=== PATIENT | male | born 1965 | race Caucasian/White ===

== ENCOUNTER 2016-10-23 06:18 | Outpatient (CLI) | payer OTHER ==
[~2016-10-23] VITALS: Ht 167.6 cm; Wt 79.4 kg
== END 2016-10-23 13:03 ==
LOC: PREOP 06:18
PROVIDERS: ATTEND Otolaryngology Otolaryngology/Facial Plastic Surgery
DX: Z01.818 Encounter for other preprocedural examination (principal)

== ENCOUNTER 2016-10-29 08:12 | Day surgery (SDC) | payer OTHER ==
[~2016-10-29] VITALS: Ht 167.6 cm; Wt 79.4 kg
[2016-10-29 08:25] VITALS: BP 146/91
--- OUTSIDE RECORDS SUMMARY | 2016-10-29 08:30 | XMS REPORT | Continuity of Care Document ---
Author Author [facility] Organization [facility] Address Unknown Phone Unavailable Support Name Relationship Address Phone VEENA WOLFE MD Caregiver Elvia [address], [address] [place], [place] [phone] Insurance Providers Payer Name Policy Number Subscriber Name Relationship Unknown Advance Directives Directive Response Recorded Date/Time Advance Directives Yes 10/23/16 12:28pm Health Care Power of Customer Care Consultant Yes 10/23/16 12:28pm Resuscitation Status Full Code 10/23/16 12:28pm Problems No problem information available. Medications No known medications. Social History Social History Problem Response Recorded Date/Time Alcohol Use Denies Use 10/23/2016 12:28pm Recreational Drug Use No 10/23/2016 12:28pm Recent Foreign Travel No 10/23/2016 12:26pm Recent Infectious Disease Exposure No 10/23/2016 12:26pm Sexually Transmitted Disease No 10/23/2016 12:28pm HIV/AIDS No 10/23/2016 12:28pm Smoking Status Never a Smoker 10/23/2016 12:28pm Recent Hopitalizations No 10/23/2016 12:28pm Sexually Transmitted Disease No 10/23/2016 12:28pm Query Response Start Date Stop Date Smoking Status Never a Smoker Hospital Discharge Instructions No hospital discharge instructions. Plan of Care Discharge Date 10/23/16 1:03pm Prescriptions See Medication Section Functional Status No functional status results. Allergies, Adverse Reactions, Alerts No known allergies. Immunizations No immunization records. Vital Signs Acute Vital Signs Vital Response Date/Time Height (Feet) 5 feet 10/23/2016 12:25pm Height (Inches) 6.00 inches 10/23/2016 12:25pm Height (Calculated Centimeters) 167.397986 cm 10/23/2016 12:25pm Weight (Pounds) 175 pounds 10/23/2016 12:25pm Weight (Ounces) 0.0 oz 10/23/2016 12:25pm Weight (Calculated Grams) 34979.67 gm 10/23/2016 12:25pm Weight (Calculated Kilograms) 79.020592 kilograms 10/23/2016 12:25pm Calculated BMI 28.3 10/23/2016 12:25pm Results No known relevant diagnostic tests, laboratory data and/or discharge summary. Procedures No known history of procedures. Encounters Encounter Location Arrival/Admit Date Discharge/Depart Date Attending Provider Registered Clinic [facility] 10/23/16 6:18am VEENA WOLFE MD
--- OUTSIDE RECORDS SUMMARY | 2016-10-29 08:30 | XMS REPORT | Continuity of Care Document ---
Author Author [facility] Organization [facility] Address Unknown Phone Unavailable Support Name Relationship Address Phone VEENA WOLFE MD Caregiver Elvia [address], [address] [place], [place] [id number] Insurance Providers Payer Name Policy Number Subscriber Name Relationship Unknown Advance Directives Directive Response Recorded Date/Time Advance Directives Yes 10/23/16 12:28pm Health Care Power of Facilities Assistant Yes 10/23/16 12:28pm Resuscitation Status Full Code [...] 6.00 inches 10/23/2016 12:25pm Height (Calculated Centimeters) 167.223375 cm 10/23/2016 12:25pm Weight (Pounds) 175 pounds 10/23/2016 12:25pm Weight (Ounces) 0.0 oz 10/23/2016 12:25pm Weight (Calculated Grams) 08989.67 gm 10/23/2016 12:25pm Weight (Calculated Kilograms) 79.403753 kilograms 10/23/2016 12:25pm Calculated BMI 28.3 10/23/2016 12:25pm Results No known relevant diagnostic tests, laboratory data and/or discharge summary. Procedures No known history of procedures. Encounters Encounter Location Arrival/Admit Date Discharge/Depart Date Attending Provider Registered Clinic [facility] 10/23/16 6:18am VEENA WOLFE MD
[2016-10-29] MEDS ORDERED: MUPIROCIN 2% OINT 22 GM (BACTROBAN) TUBE ONE (08:49)
[2016-10-29] MEDS ORDERED: LIDOCAINE/EPI 1%-1:100,000 (XYLOCAINE) 20ML ONE (08:49)
[2016-10-29 08:50] LABS: BASOPHILS % (AUTO) 1 % (0-10); EOSINOPHILS # (AUTO) 0.1 10^3/uL (0.0-0.3); EOSINOPHILS % (AUTO) 3 % (0-10); LYMPHOCYTES # (AUTO) 1.5 X 10^3 (1.0-4.0); LYMPHOCYTES % (AUTO) 32 % (12-44); MEAN CORPUSCULAR HEMOGLOBIN 29 PG (25-34); MEAN CORPUSCULAR HGB CONC 34 G/DL (32-36); MEAN CORPUSCULAR VOLUME 85 FL (80-99); MEAN PLATELET VOLUME 9.8 FL (7.4-10.4); MONOCYTES # (AUTO) 0.4 X 10^3 (0.0-1.0); MONOCYTES % (AUTO) 9 % (0-12); NEUTROPHILS # (AUTO) 2.6 X 10^3 (1.8-7.8); NEUTROPHILS % (AUTO) 56 % (42-75); PLATELET COUNT 222 10^3/uL (130-400); RED CELL DISTRIBUTION WIDTH 12.9 % (10.0-14.5); WHITE BLOOD COUNT 4.7 10^3/uL (4.3-11.0)
[2016-10-29 09:05] LABS: ANION GAP 7 MMOL/L (5-14); BLOOD UREA NITROGEN 14 MG/DL (7-18); BUN/CREATININE RATIO 16; CALCIUM 9.3 MG/DL (8.5-10.1); CARBON DIOXIDE 27 MMOL/L (21-32); CHLORIDE 106 MMOL/L (98-107); CREATININE SERUM 0.87 MG/DL (0.60-1.30); GFR ESTIMATED > 60; GLUCOSE 83 MG/DL (70-105); POTASSIUM 4.1 MMOL/L (3.6-5.0); SODIUM 140 MMOL/L (135-145)
[2016-10-29] MEDS ORDERED: proPOfol 200 MG/20 ML (DIPRIVAN) VIAL IV ONE (09:18)
[2016-10-29] MEDS ORDERED: fentaNYL INJECTION 100 MCG/2 ML AMP ONE (09:18)
[2016-10-29] MEDS ORDERED: MIDAZOLAM 2 MG/2 ML (VERSED) VIAL ONE (09:18)
[2016-10-29] MEDS ORDERED: LACTATED RINGERS 1,000 ML IV PRN (09:20)
--- NOTE | 2016-10-29 09:26 | Progress Note-Pre Operative ---
Pre-Operative Progress Note H&P Reviewed The H&P was reviewed, patient examined and no changes noted. Date H&P Reviewed: Oct 29, 2016 Time H&P Reviewed: 09:15 Pre-Operative Diagnosis: Left Neck Mass VEENA WOLFE MD Oct 29, 2016 9:26 am
[2016-10-29] MEDS ORDERED: LACTATED RINGERS 1,000 ML IV ONE (10:01)
[2016-10-29] MEDS ORDERED: SEVOFLURANE (ULTANE) 15 ML INHAL SOLN ONE (10:01)
[2016-10-29] MEDS ORDERED: ONDANSETRON 4 MG/2 ML (SDV) Z0FRAN ONE (10:01)
--- NOTE | 2016-10-29 10:05 | Progress Note-Post Operative ---
Post-Operative Progess Note Pre-Operative Diagnosis Left Neck Mass Post-Operative Diagnosis same Post-Op Procedure Note Date of Procedure: Oct 29, 2016 Name of Procedure: Excisonal Biopsy of Left Cervical Lymph NOde Anesthesia Type get Estimated blood loss (mL): minimal Specimen(s) collected left cervical lymph node VEENA WOLFE MD Oct 29, 2016 10:05 am
[2016-10-29] MEDS ORDERED: ONDANSETRON 4 MG/2 ML (SDV) Z0FRAN IV PRN (10:15)
[2016-10-29] MEDS ORDERED: ACETAMINOPHEN 325 MG TABLET/CAPLET (TYLENOL) PO PRN (10:15)
[2016-10-29] MEDS ORDERED: HYDROcodone/APAP 5 MG/325 MG (LORTAB) TAB PO PRN (10:15)
[2016-10-29] MEDS ORDERED: morphine INJ 10 MG/ML 1ML (SYR OR VIAL) IV PRN (10:15)
[2016-10-29 11:00] VITALS: BP 133/84
[2016-10-29 11:30] VITALS: BP 126/80
[2016-10-29] MEDS ORDERED: HYDR-3812 PO (12:00)
[2016-10-29 12:10] VITALS: BP 127/72
[2016-10-29 12:24] VITALS: BP 127/72
== END 2016-10-29 12:24 | disposition home or self-care (01) ==
LOC: SDC 08:12
PROVIDERS: ATTEND Otolaryngology Otolaryngology/Facial Plastic Surgery
DX: R59.0 Localized enlarged lymph nodes (principal)
CPT/HCPCS: 36415; 80048; 85025; 87081; 93005

== ENCOUNTER → 2021-11-02 | Outpatient (CLI) | payer OTHER ==
[~2021-11-02] MED LIST: ACHD5005 PO
--- NOTE | 2021-11-02 10:25 | Diagnostic Imaging Report ---
INDICATION: Left hip pain AP and frog-leg views of left hip are obtained. There is moderate narrowing of the superior left hip joint space with mild remodeling of the superior acetabulum and lateral femoral head. Marginal spurring is also present and likely contributes to femoral acetabular impingement. No acute fracture seen. There is no lytic or sclerotic lesion. IMPRESSION: Degenerative findings in the superior hip joint likely related to osteoarthritis with component of femoral acetabular impingement. Dictated by: Dictated on workstation # [id number]
== END ==
LOC: ORTHO 09:34
PROVIDERS: ATTEND Orthopaedic Surgery
DX: M16.12 Unilateral primary osteoarthritis, left hip (principal)
CPT/HCPCS: 73502; G0463; 99203